=== PATIENT | male | born 1985 | race Caucasian/White ===

== ENCOUNTER 2018-08-06 01:43 | Emergency (ER) | payer SELFPAY ==
[~2018-08-06] VITALS: Ht 177.8 cm; Wt 95.5 kg
[2018-08-06 01:47] VITALS: BP 151/85
== END 2018-08-06 02:00 | disposition left against medical advice (07) ==
LOC: EMS 01:43
DX: H57.11 Ocular pain, right eye (principal); Z53.21 Procedure and treatment not carried out due to patient leaving prior to being seen by health care provider